=== PATIENT | female | born 1960 | race Asian ===

== ENCOUNTER 2017-12-03 14:18 | Outpatient (CLI) | payer OTHER ==
--- NOTE | 2017-12-05 11:12 | Mammography Report ---
DIGITAL SCREENING MAMMOGRAM: 12/03/2017 TECHNIQUE: Bilateral digital CC and MLO projections. COMPARISON: 10/19/2015, 10/09/2013, 10/09/2011, 10/05/2010 and 02/09/2009. FINDINGS: The breast tissue is heterogeneously dense. There are no suspicious microcalcifications, skin thickening, or architectural distortion in either breast. On the left, no dominant mass. On the right, there is a nodular density in the posterior third lateral breast, probably inferior on the MLO projection, not definitely appreciated on prior studies. Suggest further evaluation by spot compression and true lateral views, and possible ultrasound. IMPRESSION: 1. NEGATIVE LEFT BREAST. BI-RADS CODE 1 - NEGATIVE. 2. NEEDS ADDITIONAL EVALUATION RIGHT BREAST. BI-RADS CATEGORY 0 - NEED ADDITIONAL IMAGING EVALUATION. STANDARD QUALIFYING STATEMENTS: 1. This examination was reviewed with the aid of Computer-Aided Detection (CAD) . 2. A negative or benign imaging report should not delay biopsy if clinically suspicious findings are present. Consider surgical consultation if warranted. More than 5 % of cancers are not identified by imaging. 3. Dense breasts may obscure an underlying neoplasm. TD: 12/05/2017 11:06 MARSHALL
== END 2017-12-03 14:19 | disposition home or self-care (01) ==
LOC: DI.N 14:18
PROVIDERS: ATTEND Internal Medicine
DX: Z12.31 Encounter for screening mammogram for malignant neoplasm of breast (principal); R92.2 Inconclusive mammogram
CPT/HCPCS: 77067

== ENCOUNTER 2018-08-22 12:51 | Outpatient (CLI) | payer OTHER ==
--- NOTE | 2018-08-22 15:28 | Mammography Report ---
Reason: INCONCLUSIVE MAMMO Procedure Date: 08/22/2018 Accession Number: [id number] / [id number] Procedure: RADHA - Diag Special Views Dig RT CPT Code: FULL RESULT: EXAM: Diag Special Views Dig RT DATE: 08/22/2018 2:18 PM CLINICAL HISTORY: Recall from screening for nodular density in the posterior lateral right breast. TECHNIQUE: Right spot CC and MLO views were obtained. Focused right breast ultrasound was performed. COMPARISON: 12/03/2017 through 10/05/2010. FINDINGS: The right breast demonstrates heterogeneously dense fibroglandular parenchyma. The 4 mm well-circumscribed nodule in the right lateral outer mid breast persists and is localized on the right ML image #24. Focused breast ultrasound of the right breast in the same area identifies a 4 mm x 3 mm simple cyst which corresponds in size and appearance and location to the mammographic finding, typically benign. No suspicious mass, architectural distortion or calcifications are identified. IMPRESSION: Benign findings RECOMMENDATION: Recommend routine annual Screening mammography unless otherwise clinically indicated. BIRADS CATEGORY 2: Benign findings STANDARD QUALIFYING STATEMENTS: 1. This examination was not reviewed with the aid of Computer-Aided Detection (CAD). 2. A negative or benign imaging report should not delay biopsy if clinically suspicious findings are present. Consider surgical consultation if warrented. More than 5% of cancers are not identified by imaging. 3. Dense breasts may obscure an underlying neoplasm. 4. This examination was reviewed with the aid of 3D imaging (tomography).
== END 2018-08-22 12:52 | disposition home or self-care (01) ==
LOC: DI 12:51
PROVIDERS: ATTEND Internal Medicine
DX: N60.01 Solitary cyst of right breast (principal)
CPT/HCPCS: 76642

== ENCOUNTER 2019-05-14 15:40 | Emergency (ER) | payer OTHER ==
[2019-05-14 15:59] VITALS: BP 140/74
--- NOTE | 2019-05-14 16:31 | ED Physician Documentation ---
PD HPI BACK INJURY - Stated complaint Stated Complaint: back pain - History obtained from History obtained from: Patient - History of Present Illness Location: Lower Type of injury: Twist (carrying object and lost balance, with twist forward and felt some pain to low back that has persisted and worsened. Spasms at times. No impact nor fall per se.) Where injury occurred: Home Timing - onset: How many days ago (4) Timing - duration: Days (4) Timing - details: Abrupt onset, Still present, Waxing and waning Quality: Pain, Spasm Worsened by: Moving Associated symptoms: No: Fever, Weakness, Numbness, Incontinent of urine Contributing factors: No: Prior back surgery Review of Systems Constitutional: denies: Fever, Chills, Myalgias GI: denies: Abdominal Pain, Nausea, Vomiting, Diarrhea : denies: Dysuria, Frequency, Incontinent, Hematuria Skin: denies: Rash, Lesions Musculoskeletal: reports: Back pain (lumbar laterally) Neurologic: denies: Focal weakness, Numbness PD PAST MEDICAL HISTORY - Past Medical History Past Medical History: No Musculoskeletal: Fibromyalgia, Chronic back pain - Past Surgical History Past Surgical History: No - Present Medications Home Medications: Ambulatory Orders Medication Instructions Recorded Confirmed Atenolol 25 mg PO DAILY 06/18/15 06/18/15 Cyclobenzaprine [Flexeril] 10 mg PO TID PRN #30 tablet 06/18/15 HYDROcod/ACETAM 5/325 [[place] 5/325] 1 - 2 ea PO Q6H PRN #20 tablet 06/18/15 Oxycodone HCl/Acetaminophen 1 - 2 each PO Q6H PRN #25 tablet 05/14/19 [Percocet 5-325 mg Tablet] Tizanidine HCl 4 mg PO TID PRN #25 capsule 05/14/19 dexAMETHasone [Decadron] 4 mg PO DAILY #7 tablet 05/14/19 - Allergies Allergies/Adverse Reactions: Allergies Allergy/AdvReac Type Severity Reaction Status Date / Time No Known Drug Allergies Allergy Verified 05/14/19 15:54 - Social History Does the pt smoke?: No Smoking Status: Never smoker Does the pt drink ETOH?: No Does the pt have substance abuse?: No - Immunizations Immunizations are current?: Yes PD ED PE NORMAL - Vitals Vital signs reviewed: Yes - General General: Alert and oriented X 3, Well developed/nourished - Cardiac Cardiac: RRR, No murmur - Respiratory Respiratory: Clear bilaterally - Abdomen Abdomen: Soft, Non tender - Rectal Rectal: Deferred - Back Back: No CVA TTP, No spinal TTP (is tender in muscles in lumbar area. No vertebral tenderness to percussion. ) - Derm Derm: Normal color, Warm and dry, No rash - Extremities Extremities: No tenderness to palpate, Normal ROM s pain, No edema, No calf tenderness / cord, Other (normal knee reflexes) - Neuro Neuro: Alert and oriented X 3, No motor deficit, No sensory deficit, Normal speech Results - Vitals Vitals: Oxygen O2 Source Room air PD MEDICAL DECISION MAKING - ED course Complexity details: considered differential (low back strain without red flags. ), d/w patient Departure - Departure Disposition: 01 Home, Self Care Clinical Impression: Low back strain Qualifiers: Encounter type: initial encounter Qualified Code(s): S39.012A - Strain of muscle, fascia and tendon of lower back, initial encounter Condition: Stable Record reviewed to determine appropriate education?: Yes Instructions: ED Low Back Pain Injury Follow-Up: Adrienne Ayoub MD [Primary Care Provider] - Prescriptions: dexAMETHasone [Decadron] 4 mg PO DAILY #7 tablet Oxycodone HCl/Acetaminophen [Percocet 5-325 mg Tablet] 1 - 2 each PO Q6H PRN #25 tablet PRN Reason: pain Tizanidine HCl 4 mg PO TID PRN #25 capsule PRN Reason: Spasms Comments: Heat and gentle stretching for the low back. Physical treatments such as massage or chiropractic can be helpful for the back as well. Decadron steroid anti-inflammatory daily for a week. He can use some Advil 3 times a day. To that add Tylenol or pain medicine if needed. Muscle relaxant can be used for stiffness and spasms. Discharge Date/Time: 05/14/19 17:34
[2019-05-14] MEDS ORDERED: CHERRY SYRUP 10 ML UDC PO ONE (16:54)
[2019-05-14] MEDS ORDERED: ACETAMINOPHEN 325 MG TABLET PO STA (16:54)
[2019-05-14] MEDS ORDERED: oxyCODONE 5 MG TABLET PO STA (16:54)
[2019-05-14] MEDS ORDERED: diazePAM 5 MG TABLET PO STA (16:54)
[2019-05-14] MEDS ORDERED: DEXAMETHASONE 10 MG/ML VIAL PO STA (16:54)
== END 2019-05-14 17:34 | disposition home or self-care (01) ==
LOC: ED 15:40
DX: S39.012A Strain of muscle, fascia and tendon of lower back, initial encounter (principal); X50.1XXA Overexertion from prolonged static or awkward postures, initial encounter; Y93.89 Activity, other specified; Y92.009 Unspecified place in unspecified non-institutional (private) residence as the place of occurrence of the external cause; M79.7 Fibromyalgia
CPT/HCPCS: 99283; 99284; A9270

== ENCOUNTER 2020-01-30 16:34 | Outpatient (CLI) | payer OTHER | END 2020-01-30 16:35 | disposition critical access hospital (66) | LOC: MERGE 16:34 → EMS 16:34 | PROVIDERS: ATTEND Surgery | DX: R51 Headache (principal); R11.2 Nausea with vomiting, unspecified | CPT/HCPCS: A0425; A0429 ==

== ENCOUNTER 2020-10-18 10:57 | Outpatient (CLI) | payer OTHER ==
--- NOTE | 2020-10-19 09:59 | Mammography Report ---
BILATERAL DIGITAL SCREENING MAMMOGRAM 3D/2D: 10/18/2020 CLINICAL: Routine screening. Comparison is made to exams dated: 08/22/2018 mammogram, 12/03/2017 mammogram, and 10/19/2015 mammogram - [facility]. The tissue of both breasts is heterogeneously dense. This may lower the sensitivity of mammography. No significant masses, calcifications, or other findings are seen in either breast. There has been no significant interval change. IMPRESSION: NEGATIVE There is no mammographic evidence of malignancy. A 1 year screening mammogram is recommended. This exam was interpreted at Station ID: [id number]. NOTE: For mammograms, a report in lay terms will be sent to the patient. Approximately 15% of breast malignancies will not be visualized mammographically. In the management of a palpable breast mass, a negative mammogram must not discourage biopsy of a clinically suspicious lesion. Electronically Signed By: Diaz Feldman M.D. ar/penrad:10/18/2020 11:59:19 ACR BI-RADS Category 1: Negative 3341F PARENCHYMAL PATTERN: (D) - The breast(s) demonstrate(s) heterogeneously dense fibroglandular inessa santiago. BI-RADS CATEGORY: (1) - 1 RECOMMENDATION: (ANNUAL) - Recommend routine annual screening mammography. [id number] 1 year screening LATERALITY: (B)
== END 2020-10-18 10:58 | disposition home or self-care (01) ==
LOC: DI.N 10:57
PROVIDERS: ATTEND Internal Medicine
DX: Z12.31 Encounter for screening mammogram for malignant neoplasm of breast (principal)

== ENCOUNTER 2021-05-19 08:53 | Emergency (ER) | payer OTHER ==
--- NOTE | 2021-05-19 10:03 | ED Physician Documentation ---
PD HPI URI - Stated complaint Stated Complaint: C+ - History obtained from History obtained from: Patient - History of Present Illness Timing - onset: How many weeks ago (2) Timing duration: Weeks (2) Timing details: Abrupt onset, Still present, Waxing and waning Associated symptoms: Fever (initial 4-5 days, but none the past week. Still has persistent cough and dyspnea, nausea and poor appetite due to it. No recent vomiting. She felt she was improving after the first week, but persists with fatigue, nausea and dyspnea. Requesting monoclonal antibodies.), Chills, Dry cough, Dyspnea, NVD Contributing factors: Sick contact (she had COVID symptoms and had positive home test on the 7th.), Unimmunized Improves by: Rest Worsened by: Activity Similar symptoms before: Has not had sx before Review of Systems Constitutional: reports: Fever (initially but not recent), Chills Nose: reports: Congestion Respiratory: reports: Dyspnea, Cough GI: reports: Nausea, Vomiting. denies: Abdominal Pain, Diarrhea Skin: denies: Rash Neurologic: reports: Generalized weakness. denies: Altered mental status, Head ache PD PAST MEDICAL HISTORY - Past Medical History Cardiovascular: None Respiratory: None Musculoskeletal: Chronic back pain, Fibromyalgia - Past Surgical History Past Surgical History: No - Present Medications Home Medications: Ambulatory Orders Medication Instructions Recorded Confirmed Cyclobenzaprine [Flexeril] 10 mg PO TID PRN #30 tablet 06/18/15 HYDROcod/ACETAM 5/325 [[place] 5/325] 1 - 2 ea PO Q6H PRN #20 tablet 06/18/15 atenoloL [Atenolol] 25 mg PO DAILY 06/18/15 06/18/15 Oxycodone HCl/Acetaminophen 1 - 2 each PO Q6H PRN #25 tablet 05/14/19 [Percocet 5-325 mg Tablet] Tizanidine HCl 4 mg PO TID PRN #25 capsule 05/14/19 dexAMETHasone [Decadron] 4 mg PO DAILY #7 tablet 05/14/19 Meclizine HCl 25 mg PO Q6H PRN #15 tab.chew 01/30/20 Ondansetron Odt [Zofran] 4 mg TL Q6H PRN #10 tablet 01/30/20 Albuterol Sulf [Ventolin Hfa 2 - 3 puffs INH Q4HR PRN #1 inhaler 05/19/21 Inhaler] Famotidine [Pepcid] 20 mg PO DAILY #15 tablet 05/19/21 LORazepam [Ativan] 1 mg PO QPM PRN #5 tablet 05/19/21 Ondansetron Odt [Zofran] 4 mg TL Q6H PRN #10 tablet 05/19/21 - Allergies Allergies/Adverse Reactions: Allergies Allergy/AdvReac Type Severity Reaction Status Date / Time everything AdvReac Unknown Uncoded 05/19/21 10:06 - Social History Does the pt smoke?: No Smoking Status: Never smoker Does the pt drink ETOH?: No Does the pt have substance abuse?: No - Immunizations Immunizations are current?: Yes PD ED PE NORMAL - Vitals Vital signs reviewed: Yes - General General: Alert and oriented X 3, No acute distress, Well developed/nourished - HEENT HEENT: Pharynx benign - Neck Neck: Supple, no meningeal sign, No adenopathy - Cardiac Cardiac: RRR, No murmur - Respiratory Respiratory: Clear bilaterally - Abdomen Abdomen: Soft, Non tender - Derm Derm: Normal color, Warm and dry, No rash - Neuro Neuro: Alert and oriented X 3, No motor deficit, Normal speech Results - Vitals Vitals: Vital Signs - 24 hr 05/19/21 05/19/21 05/19/21 09:44 10:55 12:00 Temperature 36.7 C 36.3 C L Heart Rate 66 64 59 L Respiratory 15 18 16 Rate Blood Pressure 155/89 H 117/73 O2 Saturation 97 97 Oxygen O2 Source Room air - Rads (name of study) chest xray Radiology: Prelim report reviewed (no infiltrates), See rad report PD MEDICAL DECISION MAKING - ED course Complexity details: considered differential (post COVID and sounds likely over the acute infection and with persisting inflammatory symptoms. She is about 2 weeks from onset of symptoms and not risk factors to qualify for monoclonal antibody. She would not benefit from them. I discussed this with her. She can benefit from symtpom meds.), d/w patient, other (has persistent nausea, poor appetite and dyspnea post recent COVID (onset symptoms 2 weeks ago, and no fever/less cough the past week).) Departure - Departure Disposition: 01 Home, Self Care Clinical Impression: Upper respiratory infection, Dyspnea, Nausea Condition: Stable Record reviewed to determine appropriate education?: Yes Follow-Up: Adrienne Ayoub MD [Primary Care Provider] - Prescriptions: Albuterol Sulf [Ventolin Hfa Inhaler] 2 - 3 puffs INH Q4HR PRN #1 inhaler PRN Reason: Shortness Of Air/Wheezing LORazepam [Ativan] 1 mg PO QPM PRN #5 tablet PRN Reason: Insomnia Famotidine [Pepcid] 20 mg PO DAILY #15 tablet Ondansetron Odt [Zofran] 4 mg TL Q6H PRN #10 tablet PRN Reason: Nausea / Vomiting Comments: Small frequent fluids and bland food. Famotidine acid reducing medicine daily for the next week or 2. Ondansetron if needed for nausea. I would suggest antacid such as Maalox or Mylanta periodically if needed for stomach discomfort. Tylenol if needed for pains. Decadron steroid anti-inflammatory daily for the next several days to help with airway inflammation in general aches. Use the albuterol inhaler 2 to 3 puffs 4 times a day to help with breathing and increased airflow. I would anticipate improvement over the next several days to week. Use the lorazepam at night if needed for insomnia in the short-term. [facility] Discharge Date/Time: 05/19/21 12:01
[2021-05-19] MEDS ORDERED: ONDANSETRON ODT 4 MG TABLET TL STA (10:33)
[2021-05-19] MEDS ORDERED: MAG HYDROX/AL HYDROX/SIMETH 30 ML UDC PO STA (10:33)
[2021-05-19] MEDS ORDERED: LIDOCAINE VISCOUS 2% 15 ML UDC MM STA (10:33)
[2021-05-19] MEDS ORDERED: DEXAMETHASONE 10 MG/ML VIAL PO STA (10:34)
[2021-05-19] MEDS ORDERED: ALBUTEROL 1 PUFF INH STA (10:34)
--- NOTE | 2021-05-19 10:58 | XRAY Report ---
PROCEDURE: Chest 1 View X-Ray INDICATIONS: chest pain TECHNIQUE: One view of the chest was acquired. COMPARISON: None FINDINGS: Surgical changes and devices: None. Lungs and pleura: No pleural effusions or pneumothorax. Lungs are clear. Mediastinum: Mediastinal contours appear normal. Heart size is normal. Bones and chest wall: No suspicious bony lesions. Overlying soft tissues appear unremarkable. IMPRESSION: No acute pulmonary process. Reviewed by: Geni Mejia MD on 05/19/2021 10:57 AM [facility] Approved by: Geni Mejia MD on 05/19/2021 10:57 AM [facility] Station ID: [id number]
[2021-05-19 12:02] VITALS: BP 117/73
== END 2021-05-19 12:01 | disposition home or self-care (01) ==
LOC: ED 08:53
DX: J06.9 Acute upper respiratory infection, unspecified (principal); R06.00 Dyspnea, unspecified; R11.0 Nausea; M79.7 Fibromyalgia
CPT/HCPCS: 71045; 94640; 94664; 99283; A9270; Q0162